=== PATIENT | female | born 1965 | race Caucasian/White ===

== ENCOUNTER 2022-09-19 08:50 | Outpatient (CLI) | payer OTHER, SELFPAY ==
--- NOTE | ~2022-09-19 | MM_ITS ---
EXAMINATION: MM screening vinnie BI w dm HISTORY: Screening TECHNIQUE: Craniocaudal and mediolateral oblique 3-D tomosynthesis images were obtained and synthetic 2-D images were generated. CAD analysis was submitted and interpreted. COMPARISON: No prior mammogram is available for comparison at this institution. BREAST PARENCHYMAL COMPOSITION: The breasts are almost entirely fatty. FINDINGS: There is no evidence of suspicious mass, calcification, or architectural distortion to sugg est malignancy in either breast. There has been no suspicious interval change. IMPRESSION: 1. No mammographic evidence of malignancy. 2. Recommend routine screening mammography in one year. BI-RADS Category 1: Negative Reviewed, dictated and finalized at location A.
--- NOTE | ~2022-09-19 | DEXA_ITS ---
Bone Density Report Name: BART WALKER Age: 56 Sex: Female Ethnicity: White Date of : 1965 Indication: postmenopausal; screening for osteoporosis; height loss; Referring Provider: UNKNOWN, UNKNOWN Study: Bone densitometry was performed. Exam Date: September 19, 2022 Accession number: [id number] Bone Density: Region BMD T-score Z-score Classification AP Spine(L1-L4) 0.797 -2.3 -1.0 Osteopenia Femoral Neck (Left) 0.543 -2.8 -1.6 Osteoporosis Total Hip (Left) 0.809 -1.1 -0.3 Osteopenia Femoral Neck (Right) 0.507 -3.1 -1.9 Osteoporosis Total Hip (Right) 0.708 -1.9 -1.1 Osteopenia Total Hip Mean 0.758 -1.5 -0.7 Osteopenia World Health Organization criteria for BMD impression classify patients as: Normal (T-score at or above -1.0), Osteopenia (T-score between -1.0 and -2.5), or Osteoporosis (T-score at or below -2.5). 10-year Fracture Risk: FRAX not reported because: Some T-score for Spine Total or Hip Total or Femoral Neck at or below -2.5 Clinical Information Provided by Patient: Has used the following medications: Vitamin D Patient maximum height was 65 Menopause Age: 49 No regular weight bearing exercise Drinks caffeinated beverages Onset of menses at age 14 Number of children 3 Impression: The patient has osteoporosis, based on the Right Femoral Neck T-score. Discussion: INCREASED RISK OF FRACTURE. BONE DENSITY IS UNDESIRABLY LOW AT ONE OR MORE SKELETAL SITES, CONSISTENT WITH POSTMENOPAUSAL OSTEOPOROSIS. This patient's lowest T-score meets the World Health Organization's (WHO) criteria for osteoporosis at one or more sites (T-score -2.5 or below). In untreated patients, the risk of osteoporotic fracture increases approximately two-fold for each 1.0 SD decrease in T-score. Low bone density is not the only risk factor for fracture; also consider factors such as patient's age, frailty or poor health, risk of falling, risk of injury, previous osteoporotic fracture, family history of osteoporosis, cigarette smoking, low body weight, etc. Not everyone with low bone mineral density has osteoporosis; osteomalacia and other metabolic bone disorders should also be considered. Patients who have osteoporosis should be evaluated for specific diseases and conditions (secondary causes) that may cause or contribute to bone loss. The [place] [employer]ocrinologists (AACE) and National Osteoporosis Foundation (NOF) recommend pharmacologic intervention for all postmenopausal women whose T-score is in this range. The patient should follow a healthful lifestyle (good nutrition with adequate calcium and vitamin D, and appropriate weight-bearing exercise). Follow-Up: Consider a repeat BMD and Vertebral Fracture Assessment (VFA) exam in 2 years or sooner if medically necessary, to reassess t
== END 2022-09-19 08:51 | disposition home or self-care (01) ==
LOC: ANHIMG 08:58
DX: Z12.31 Encounter for screening mammogram for malignant neoplasm of breast (principal); Z78.0 Asymptomatic menopausal state; M85.89 Other specified disorders of bone density and structure, multiple sites; M81.0 Age-related osteoporosis without current pathological fracture
CPT/HCPCS: 77063; 77067; 77080

== ENCOUNTER 2022-12-09 09:18 | Emergency (ER) | payer OTHER, SELFPAY ==
[2022-12-09 09:39] VITALS: BP 180/77; PULSE 128; RESP 16; TEMP 37.1; O2SAT 96
--- NOTE | 2022-12-09 09:39 | ED.GENADULT ---
HPI - General Adult General Chief complaint: Upper Respiratory Infection Stated complaint: shortness of breath, fever,acid reflux Time Seen by Provider: 12/09/22 09:39 Source: patient, RN notes reviewed and old records reviewed Mode of arrival: ambulatory Limitations: no limitations History of Present Illness HPI narrative: 57-year-old female presents to the [facility] with complaints subjective fever, acid reflux, chest discomfort, shortness of breath, dizziness, nausea and fatigue that was sudden onset at 2:00 a.m.. States that she took her acid reflux medication and Pepto. patient denies any history of hypertension or cardiac issues has a history of gastric bypass, GERD MD complaint: chest discomfort, shortness of breath Onset (ago): hour(s) (7.5, started at 2:00 a.m.) Treatments prior to arrival: other ( acid reflux medication and Pepto) Related Data Home Medications Medication Instructions Recorded Confirmed aspirin 81 mg capsule 81 mg PO DAILY 12/09/22 12/09/22 cholecalciferol (vitamin D3) 25 25 mcg PO DAILY 12/09/22 12/09/22 mcg (1,000 unit) capsule gabapentin 600 mg tablet 600 mg PO DAILY 12/09/22 12/09/22 ibandronate 150 mg tablet 150 mg PO DAILY 12/09/22 12/09/22 pantoprazole 40 mg tablet,delayed 40 mg PO DAILY 12/09/22 12/09/22 release Allergies Allergy/AdvReac Type Severity Reaction Status Date / Time No Known Allergies Allergy Verified 12/09/22 09:41 Review of Systems Review of Systems: All systems reviewed & are unremarkable except as noted in HPI and below Constitutional: Constitutional: Reports no additional constitutional complaints Eyes: Eyes: Reports no additional eye complaints ENT: Reports system reviewed and no additional complaints, except as documented Cardiovascular: Cardiovascular: Reports as per HPI, Reports chest pain, Reports rapid heart rate, Reports lightheadedness and Reports dyspnea Respiratory: Respiratory: Reports as per HPI, Denies chest congestion, Denies cough and Reports dyspnea Gastrointestinal: Gastrointestinal: Reports as per HPI, Denies abdominal pain, Reports nausea and Denies vomiting Musculoskeletal: Musculoskeletal: Reports no additional musculoskeletal complaints Integumentary/Breasts: Skin/Breast: Reports system reviewed and no additional complaints, except as docu Neurologic: Reports system reviewed and no additional complaints, except as documented Psychiatric: Psychiatric: Reports no additional psychiatric complaints Allergic/Immunologic: Allergic/Immunologic: Reports no additional allergic/immunologic complaints PMF Past Medical History Medical History H/O gastroesophageal reflux (GERD) Surgical History Surgical History (Updated 12/09/22 @ 10:01 by Dora Rubio APRN) H/O gastric bypass Social History Social History (Updated 12/09/22 @ 10:01 by Dora Rubio APRN) Living arrangements: with family Gender identity (if verbalized by the patient): Female Comments At the time of my signature, I reviewed and agree with the nursing past medical, surgical, social, and family history. There is no relevant family history pertinent to the patient complaint. Exam Const: General: cooperative, no acute distress, well developed, alert, ill appearing acutely, uncomfortable and well nourished Nutritional Appearance: well nourished and obese morbidly obese Orientation/consciousness: patient oriented x3 Limitations: no limitations HENMT: Head: normal to inspection Ears: hearing grossly normal bilaterally and external ears normal Face/Nose/Sinus: Normal external nose present, Normal nares present, Normal nasal mucous membranes and turbinates present and normal facial exam Face and sinus: normal facial exam Mouth: Yes lip normal Eyes: General: appearance normal, both eyes and all related structures Alignment and Position: alignment normal Periorbital: periorbital findings no
--- NOTE | 2022-12-09 09:47 | ECG_ITS ---
Measurements Intervals [place] Rate: 143 P: 35 [place]: 141 QRS: 13 QRSD: 77 T: -5 QT: 341 QTc: 528 Interpretive Statements PROBABLE sINUS TACHYCARDIA BASELINE ARTIFACT NONSPECIFIC ST & T-WAVE ABNORMALITY ABNORMAL ECG COMPARED TO ECG 12/09/2022 09:52:18 HEART RATE HAS INCREASED Electronically Signed On 12-09-2022 17:06:41 CDT by García De Guzman M.D.
== END 2022-12-09 09:59 | disposition short-term general hospital (02) ==
PROVIDERS: Emergency Provider Nurse Practitioner
DX: R94.31 Abnormal electrocardiogram [ECG] [EKG] (principal); R06.00 Dyspnea, unspecified; R42 Dizziness and giddiness; R07.9 Chest pain, unspecified; K21.9 Gastro-esophageal reflux disease without esophagitis; Z20.822 Contact with and (suspected) exposure to COVID-19; Z98.84 Bariatric surgery status; Z79.82 Long term (current) use of aspirin
CPT/HCPCS: 87426; 87804; 93005; 99213; C9803; G0463

== ENCOUNTER 2022-12-09 10:20 | Emergency (ER) | payer OTHER, SELFPAY ==
--- NOTE | ~2022-12-09 | XR_ITS ---
XR chest 2V 12/09/2022 11:05 Indication: Chest pain Procedure: 2 view chest Comparison: No prior studies for comparison. Findings: There is left lower lobe pneumonia. Heart size normal. Right lung clear. No significant eff usion or pneumothorax. No acute osseous abnormality. Impression: 1: Left lower lobe pneumonia. Reviewed, dictated and finalized at location [] Impression: 1: Left lower lobe pneumonia.
--- NOTE | 2022-12-09 10:25 | ECG_ITS ---
Measurements Intervals [place] Rate: 127 P: 25 [place]: 166 QRS: 18 QRSD: 76 T: -11 QT: 288 QTc: 419 Interpretive Statements SINUS TACHYCARDIA NONSPECIFIC ST & T-WAVE ABNORMALITY ABNORMAL RHYTHM ECG BORDERLINE ECGNO PREVIOUS ECG AVAILABLE FOR COMPARISON Electronically Signed On 12-09-2022 17:05:39 CDT by García De Guzman M.D.
[2022-12-09 10:34] VITALS: BP 160/85; PULSE 137; RESP 18; TEMP 37.1; O2SAT 94
[2022-12-09 10:41] VITALS: PULSE 130
[2022-12-09 11:07] LABS: Basophils Absolute Auto 0.1 K/mm3 (0.0-0.1); Basophils Percent Auto 0.6 % (0.2-1.2); Eosinophils Percent Auto 0.1 % (0-4.4); Hematocrit 45.4 % (37.0-47.0); Hemoglobin 15.1 g/dL (12.0-15.0); Immature Granulocyte Absolute 0.06 K/mm3 (0.00-0.031); Immature Granulocyte Percent A 0.6 % (0-0.5); Lymphocytes Absolute Auto 0.44 K/mm3 (0.9-3.2); Lymphocytes Percent Auto 4.4 % (18.3-44.2); Mean Corpuscular HGB Conc 33.3 g/dl (32-36); Mean Corpuscular Hemoglobin 28.3 pg (26-34); Mean Corpuscular Volume 85.2 fl (80-100); Mean Platelet Volume 10.8 fl (7.4-10.4); Monocytes Absolute Auto 0.5 K/mm3 (0.1-0.6); Monocytes Percent Auto 4.6 % (2.6-8.5); Neutrophils Absolute Auto 9.1 K/mm3 (1.3-6.7); Neutrophils Percent Auto 89.7 % (45.5-73.1); Platelet Count Result 143 k/mm3 (150-375); Red Blood Count 5.33 M/mm3 (4.2-5.4); Red Cell Distribution Width 14.1 % (11.5-14.5); White Blood Count 10.1 K/mm3 (4.5-10.0)
[2022-12-09 11:11] LABS: Prothrombin Time 13.6 Seconds (11.1-14.7)
[2022-12-09 11:12] LABS: Partial Thromboplastin Time 22.2 SECONDS (22.3-36.8)
[2022-12-09 11:18] LABS: Alanine Aminotransferase 39 U/L (6-35); Albumin Level 3.8 g/dL (3.5-5.1); Alkaline Phosphatase 99 U/L (38-126); Anion Gap 4 mmol/L (8-16); Aspartate Amino Transferase 59 U/L (14-36); Bilirubin,Total 1.4 mg/dL (0.2-1.3); Blood Urea Nitrogen 14 mg/dL (7-17); Calcium 9.5 mg/dL (8.4-10.2); Carbon Dioxide 31 mmol/L (22-30); Chloride 100 mmol/L (98-107); Estimated CRCL calculation 81 ml/min; Estimated Glomerular Filt Rate > 60; Glucose 130 mg/dL (65-110); Lipase 71 U/L (23-300); Potassium 3.8 mmol/L (3.4-5.0); Sodium 135 mmol/L (137-145)
[2022-12-09 11:22] LABS: Troponin I < 0.012 ng/mL (0.000-0.034)
[2022-12-09] MEDS: MORPHINE SULFATE (*CRX) 4 MG/ML INJ IV PUSH (11:25)
[2022-12-09 11:37] VITALS: BP 137/72; PULSE 123; RESP 16; O2SAT 94
[2022-12-09 12:41] VITALS: BP 116/75; PULSE 116; RESP 18; O2SAT 95
[2022-12-09] MEDS: SODIUM CHLORIDE 0.9% IV 1,000 ML 999 ML IV CONT (12:41)
[2022-12-09 13:33] VITALS: BP 116/56; PULSE 115; RESP 20; O2SAT 94
[2022-12-09 14:13] LABS: Troponin I < 0.012 ng/mL (0.000-0.034)
--- NOTE | 2022-12-09 14:17 | ED.CHESTPAIN ---
HPI - Chest Pain General Chief Complaint: Chest Pain Stated Complaint: cp/back pain/arm pain/morales Time Seen by Provider: 12/09/22 10:33 History of Present Illness HPI narrative: Patient is a 57-year-old female who presents the ER with left-sided back pain, cough, and acid reflux symptoms. Pain in the back has been ongoing over the last 3 to 4 days. The burning began last night began in her abdomen going up into her chest. Patient has history of gastric bypass. She denies any fevers. She does have frequent cough and some dyspnea. Was seen at an urgent care and referred here due to chest discomfort. Related Data Home Medications Medication Instructions Recorded Confirmed aspirin 81 mg capsule 81 mg PO DAILY 12/09/22 12/09/22 cholecalciferol (vitamin D3) 25 25 mcg PO DAILY 12/09/22 12/09/22 mcg (1,000 unit) capsule gabapentin 600 mg tablet 600 mg PO DAILY 12/09/22 12/09/22 ibandronate 150 mg tablet 150 mg PO DAILY 12/09/22 12/09/22 pantoprazole 40 mg tablet,delayed 40 mg PO DAILY 12/09/22 12/09/22 release Allergies Allergy/AdvReac Type Severity Reaction Status Date / Time No Known Allergies Allergy Verified 12/09/22 09:41 Review of Systems Review of Systems: All systems reviewed & are unremarkable except as noted in HPI and below Constitutional: Constitutional: Denies chills, Denies fatigue and Denies fever(s) ENT: Denies nasal congestion and Denies sore throat Cardiovascular: Cardiovascular: Reports chest pain, Denies rapid heart rate and Reports radiating jaw, neck or arm pain Respiratory: Respiratory: Reports cough, Reports dyspnea and Denies wheezing Gastrointestinal: Gastrointestinal: Denies abdominal pain, Reports heartburn, Denies nausea and Denies vomiting Genitourinary: Genitourinary: Denies nocturia and Denies dysuria [facility] Past Medical History Medical History H/O gastroesophageal reflux (GERD) Surgical History Surgical History (Updated 12/09/22 @ 10:01 by Dora Rubio APRN) H/O gastric bypass Social History Social History (Updated 12/09/22 @ 10:01 by Dora A. Topper, [employer] OPERATOR) Living arrangements: with family Gender identity (if verbalized by the patient): Female Exam Narrative: GENERAL: Uncomfortable-appearing, well-nourished, and in no acute distress. HEAD: Normocephalic, atraumatic. EYES: PERRL and EOMI. ENT: Mucous membranes moist. CHEST: Left-sided Rales without wheezing worse at the base. No respiratory distress. HEART: Tachycardic and regular. Normal peripheral pulses. ABDOMEN: Soft, nontender, nondistended, normal active bowel sounds. EXTREMITIES: Normal range of motion. No edema. SKIN: Warm, dry, no rash. NEURO: Alert and oriented x3. PSYCH: Normal mood and affect. Course Course Emergency Course: White blood cell count minimally elevated. Troponins negative x2. Normal kidney function. Chest x-ray with pneumonia. Heart rate improving with fluids. Discussed treatment plan with patient and . [place] comfortable with discharge home with oral antibiotics. Patient did initially receive IV antibiotics during her work-up. Discussed return precautions. Vital Signs Vital signs: Vital Signs Temperature 98.7 F 12/09/22 10:34 Pulse Rate 137 H 12/09/22 10:34 Respiratory Rate 18 12/09/22 10:34 Blood Pressure 160/85 H 12/09/22 10:34 Pulse Oximetry 94 12/09/22 10:34 Oxygen Delivery Room Air 12/09/22 10:34 Temperature 98.7 F 12/09/22 10:34 Pulse Rate 115 H 12/09/22 13:33 Respiratory Rate 20 12/09/22 13:33 Blood Pressure 116/56 L 12/09/22 13:33 Pulse Oximetry 94 12/09/22 13:33 Oxygen Delivery Room Air 12/09/22 10:34 MDM - Chest Pain Lab Data 12/09/22 10:42 12/09/22 10:42 Labs: Lab Results 12/09/22 12/09/22 Range/Units 10:42 13:33 WBC 10.1 H (4.5-10.0) K/mm3 RBC 5.33 (4.2-5.4) M/mm3 Hgb 15.1 H (12.0-15.0) g
[2022-12-09 14:47] VITALS: BP 135/80; PULSE 112; RESP 22; O2SAT 95
== END 2022-12-09 14:50 | disposition home or self-care (01) ==
PROVIDERS: Emergency Provider Emergency Medicine
DX: J18.9 Pneumonia, unspecified organism (principal); R09.1 Pleurisy; K21.9 Gastro-esophageal reflux disease without esophagitis; Z98.84 Bariatric surgery status; Z79.82 Long term (current) use of aspirin; R00.0 Tachycardia, unspecified; R94.31 Abnormal electrocardiogram [ECG] [EKG]
CPT/HCPCS: 36415; 71046; 80053; 83690; 84484; 85025; 85610; 85730; 87040; 93005; 96361; 96365; 96375; 99284; J0696; J2270; J7030

== ENCOUNTER 2023-01-07 07:07 | Outpatient (CLI) | payer OTHER, SELFPAY ==
--- NOTE | ~2023-01-07 | XR_ITS ---
Clinical Indication: Pneumonia PA and lateral views of the chest: Comparison: 12/09/2022 Findings: Left lower lobe pneumonia is nearly completely resolved. Right lung clear. Cardiomediastina l silhouette is within normal limits. Bones and soft tissues are unremarkable. Impression: Left lower lobe pneumonia is nearly completely resolved. Reviewed, dictated and finalized at location . Impression: Left lower lobe pneumonia is nearly completely resolved.
== END 2023-01-07 07:08 | disposition home or self-care (01) ==
LOC: ANHIMG 07:14
DX: J18.9 Pneumonia, unspecified organism (principal)
CPT/HCPCS: 71046

== ENCOUNTER 2023-03-05 10:00 | Outpatient (CLI) | payer OTHER, SELFPAY ==
--- NOTE | ~2023-03-05 | XR_ITS ---
EXAMINATION: XR chest 2V Exam Date/Time: 03/05/2023 10:11 CDT HISTORY: PNEUMONIA, FOLLOW-UP Comparison: 01/07/2023. RESULT: Lines, tubes, and devices: Cholecystectomy and GE junction surgical clips. Lungs and pleura: Clear. Cardiomediastinal silhouette: Stable. Other: No acute osseous or upper abdominal finding. IMPRESSION: No acute cardiopulmonary process. Complete interval resolution of the left lower lobe opacity. Reviewed, dictated and finalized at location K. IMPRESSION: No acute cardiopulmonary process. Complete interval resolution of the left lowe r lobe opacity.
== END 2023-03-05 10:01 | disposition home or self-care (01) ==
DX: J18.9 Pneumonia, unspecified organism (principal)
CPT/HCPCS: 71046